=== PATIENT | female | born 1940 | race Caucasian/White ===

== ENCOUNTER 2016-09-23 12:26 | Day surgery (SDC) | payer BC ==
[2016-09-23] MEDS ORDERED: FENTANYL PF 100MCG/2ML VIAL IV ONE (14:00)
[2016-09-23] MEDS ORDERED: LIDOCAINE 2% MDV (20MG/ML) 20ML VIAL IV ONE (14:00)
[2016-09-23] MEDS ORDERED: PROPOFOL 10 MG/ML VIAL IV ONE (14:00)
--- NOTE | 2016-09-27 15:00 | Operative Note ---
DATE OF SURGERY: 09/23/2016 SURGEON: Hannah Wall MD OPERATION: ESOPHAGOGASTRODUODENOSCOPY. INDICATIONS: This is a 76-year-old female with a history of epigastric pain who presented for esophagogastroduodenoscopy. POSTOPERATIVE DIAGNOSES: 1. Diffuse gastritis. 2. Mild distal esophagitis. 3. Normal duodenum. ANESTHESIA: Sedation is per Anesthesia. Pulse oximetry was monitored throughout the procedure to maintain O2 saturation of 90% or greater. Supplemental oxygen was administered via nasal cannula. Cardiac and vital signs were monitored throughout the duration of the procedure, and they were stable. The procedure of esophagogastroduodenoscopy and risks and benefits of the procedure, including the risk of bleeding and perforation, among others, were explained to the patient who voiced understanding and desired to have the procedure done. Physical examination was performed, and the patient was found stable for sedation. PROCEDURE: The patient was placed in the left lateral position. Sedation was initiated. A plastic bite block was inserted into the oral cavity. The Olympus [id number] gastroscope was introduced into the oral cavity and advanced to the proximal esophagus without difficulty. The esophageal mucosa was carefully examined upon introduction of the gastroscope. The proximal and mid esophageal mucosa appeared normal. There was mild Z line irregularity but no ulcerations noted. The gastroscope was then advanced into the stomach, and surveillance of the stomach revealed diffuse erythema along the gastric body and antrum but no ulcers were noted. The gastroscope was then advanced to the descending duodenum without difficulty. The duodenal bulb and descending duodenum appeared normal. The gastroscope was then withdrawn into the stomach and retroflexion was performed. There were no other lesions noted. The gastroscope was then straightened and withdrawn while carefully examining the gastric and esophageal mucosa. No other lesions were noted. Multiple duodenal, gastric, and distal esophageal biopsies were obtained. She remained with stable vital signs and was transferred to the recovery room. RECOMMENDATIONS: 1. Start on proton pump inhibitors. 2. Follow up on the biopsies. 3. I would be happy to see her back as needed. Thank you for allowing me to participate in the care of your patient. Hannah Wall MD CC: Dr. Justin Mayorga [facility]
== END 2016-09-23 14:35 | disposition home or self-care (01) ==
LOC: HOP 12:26
PROVIDERS: ATTEND Internal Medicine Gastroenterology
DX: K29.50 Unspecified chronic gastritis without bleeding (principal); K21.0 Gastro-esophageal reflux disease with esophagitis; G62.9 Polyneuropathy, unspecified
CPT/HCPCS: 43239; 00740; J3010

== ENCOUNTER 2018-08-22 07:20 | Day surgery (SDC) | payer BC ==
--- NOTE | 2018-08-22 06:28 | History and Physical - Ferro ---
CHIEF COMPLAINT/HISTORY OF CHIEF COMPLAINT: This patient presents with a history of intractable lumbar radiculopathy. Due to the failure of therapy a spinal cord stimulator trial was conducted on 06/04/18 with 75-85% pain control. Due to the failure of all therapies and the success of the trial she presents today for implantation of a permanent system. PAST MEDICAL HISTORY: Degenerative arthritis, fibromyalgia, depression and difficulty sleeping. PAST SURGICAL HISTORY: section, hysterectomy and tubal ligation. EMPLOYMENT STATUS: Retired. MEDICATIONS ON ADMISSION: List to be provided. ALLERGIES: PENICILLIN. FAMILY/PSYCHOSOCIAL HISTORY: Social history - Caffeine. Family history - Adopted. PHYSICAL EXAMINATION: Height is 5'0", weight is 140. No vital signs. HEENT: Within normal limits. LUNGS: Clear. HEART: Rapid and regular. ABDOMEN: Nontender. MUSCULOSKELETAL: Examination of the musculoskeletal system shows diffuse tenderness in the lumbar spine region. Range of motion produces pain across the outer front surface of both legs. Ambulation - No assistive device utilized. NEUROLOGIC: Cranial nerves are intact. IMPRESSION: LUMBAR RADICULOPATHY, ICD-10 CODE M54.16 AND M54.17. PLAN: This patient is here for implantation of a permanent spinal cord stimulator after the failure of all therapy and the success of the trial. The procedure will be considered outpatient although an overnight stay will be evaluated. JOB NUMBER: [id number] AND [id number] [facility]
[~2018-08-22 07:20] MED LIST: ACETAMINOPHEN 1,000 MG/100 ML BTL IV ONE; CLINDAMYCIN 600MG/50ML PREMIX 600 MG/50 ML BAG IVPB ONE; FAMOTIDINE 20MG TABLET PO ONE; MECLIZINE 25 MG TABLET PO ONE; METOCLOPRAMIDE 10 MG TABLET PO ONE
[2018-08-22] MEDS ORDERED: LIDOCAINE 1% W/EPI 1:200,000 MPF 30ML SQ ONE (07:21)
[2018-08-22] MEDS ORDERED: PROPOFOL 10 MG/ML VIAL IV ONE (07:21)
[2018-08-22] MEDS ORDERED: BUPIVACAINE 0.5% W/EPI MPF 30 ML VIAL IVP ONE (07:21)
[2018-08-22] MEDS ORDERED: FENTANYL PF 100MCG/2ML VIAL IV ONE (07:21)
[2018-08-22] MEDS ORDERED: Clindamycin 600mg vial 150 MG/ML VIAL IVPB ONE (07:21)
[2018-08-22] MEDS ORDERED: LIDOCAINE 2% MDV (20MG/ML) 20ML VIAL IV ONE (07:21)
[2018-08-22] MEDS ORDERED: MIDAZOLAM HCL 2MG/2ML VIAL IV ONE (07:21)
--- NOTE | 2018-08-22 18:07 | Operative Note - Ferro ---
DATE OF SURGERY: 08/22/18 PREOPERATIVE DIAGNOSIS: LUMBAR RADICULOPATHY, ICD-10 CODE = M54.16 AND M54.17. OPERATION: 1. FLUOROSCOPICALLY-GUIDED LEFT EPIDURAL ACCESS AT T11-12 WITH CURVED ACCESS EPIMED NEEDLE [id number]. PLACEMENT OF SPINAL CORD STIMULATOR LEAD 1, A [employer] INFINION 16 WITH 6 ELECTRODES POSITIONED LEFT T6. 2. FLUOROSCOPICALLY-GUIDED EPIDURAL ACCESS LEFT T12-L1. CURVED ACCESS EPIMED NEEDLE [id number]. PLACEMENT OF SPINAL CORD STIMULATOR LEAD 2, A [employer] INFINION 16 WITH 6 ELECTRODES POSITIONED RIGHT T6. 3. COMPLEX PROGRAMMING LEAD 1 OVER 20 MINUTES FOLLOWED BY COMPLEX PROGRAMMING OF LEAD 2 OVER 20 MINUTES. 4. INCISION, SUBCUTANEOUS DISSECTION, AND ANCHORING OF LEAD 1 AND LEAD 2 TO SUPRASPINATUS FASCIA WITH A [employer] LOCKING ANCHOR AND NONABSORBABLE SUTURE. 5. INCISION, SUBCUTANEOUS DISSECTION, AND CREATION OF A SUBCUTANEOUS POUCH AT RIGHT POSTERIOR GLUTEAL MARGIN FOR PLACEMENT OF GENERATOR IDENTIFIED A [employer] PROGRAMMABLE RECHARGEABLE WAVEWRITER. 6. TUNNELING BETWEEN POUCHES, PLACEMENT OF EXTERNAL PORTION OF LEAD 1 AND LEAD 2 INTO GENERATOR POUCH, EACH LEAD INTERFACED TO GENERATOR. 7. PLACEMENT OF GENERATOR LEADS INTO POUCH. CLOSURE OF BOTH INCISIONS USING STRATAFIX SUTURE 2-0 FASCIA, 3-0 SKIN. DERMABOND CLOSURE. 8. COMPLEX RECOVERY ROOM PROGRAMMING INTERNAL GENERATOR HOME USE TWO STIMULATORS 20 MINUTES. SURGEON: PETE EDDY D.O. ANESTHESIA: LOCAL SEDATION. ANESTHESIA PROVIDER: CRNA. Freddie INDICATION: This patient presents with a history of intractable lumbar radiculopathy. Due to the failure of all therapies a spinal cord stimulator trial was conducted with 75-85% pain control. Due to the failure of all therapies and the success of the trial, the patient presents today for implantation of a permanent system. PROCEDURE: Intravenous line, vital sign monitoring, IV sedation, prepped and draped in sterile technique, patient position on the table prone. A sterile technique with imaging for guidance and local for infiltration, the following is performed: From the left, the epidural interspace at T11-12 and 12-1 were both identified and marked. The skin was infiltrated using a 25-gauge needle with local anesthetic. A 22-gauge spinal needle was inserted down from the skin to the lamina at each and local was infiltrated into the lamina. Using two separate curved Epimed needles with a loss of resistance techniques, the epidural space was accessed, first 11-12 and then 12-1 without incident atraumatically. No CSF. At 11-12, spinal cord stimulator lead 1, a [employer] Infinion 16 with 6 electrodes was advanced through the needle under imaging positioned left of midline at T6. With the access at 12-1, spinal cord stimulator lead 2, a [employer] Infinion 16 with 6 electrodes was advanced under imaging positioned right of the midline with the upper electrode at T6 parallel to lead 1. With the patient awake and appropriately responsive, complex programming of lead 1 over 20 minutes followed by lead 2 over 20 minutes was performed. With both leads then activated simultaneously with a complete pattern of stimulation across the back and into the legs. Patient indicating we had all of the appropriate areas. She was at that point given the option to implant the system, continue to program, or remove; she opted to implant. Questions were repeated with the same response. The skin above and below both needles was then infiltrated and with the patient fully sedated, an incision was made above, at, and below the needles. Subcutaneous dissection was conducted to the supraspinous fascia. The needles were removed and then each lead was anchored to the supraspinous fascia with a [employer] Box Elder and nonabsorbable suture. At the right posterior gluteal margin, a site picked by the patient for the generator, a [employer] Programmable Rechargeable WaveWriter, skin infiltrated, incision made, and subcutaneous dissection was conducted to form a pouch of suitable size and depth for the generator. A tunneling tool was then used to carry the leads into the generator pouch and each was interfaced to the generator. Antibiotic irrigation and Bovie for hemostasis to control bleeding. The generator was then placed into its own pouch and the leads were placed into their own pouch, and then both incisions were closed using STRATAFIX suture 2-0 fascia and a 3-0 subcuticular. A Dermabond closure system was then used to approximate the edges of both wounds. She was transported to the Recovery Room stable. There were no side-effects from the procedure or the sedation. She was fully awake and alert, had full functionality of the extremities. There was no unusual pain or side-effects. Her request was to be discharged home. She will be monitored then prepared for discharge. DISCHARGE INSTRUCTIONS: 1. Sites will remain clean and dry although the Dermabond will allow showering, she should not sit in water. No tubs. 2. Standard medications resumed, the antibiotic Levaquin, she will take 500 mg once a day for 14 days. If allergic, Cipro or Keflex will be substituted. 3. The office will contact the patient in 24-48 hours to set up a time in 7-10 days for us to evaluate the sites. Until that time, she is to keep her activities low and controlled. Should there be any problem, she should go to the Emergency Room and/or contact the clinic. All other instructions were provided, numbers to contact with problems given, she will be discharged. cc: Dr. Yaya Joyce JOB NUMBER: [id number] MTDD
--- NOTE | 2018-08-24 09:04 | RADIOLOGY REPORT ---
EXAM: THORACOLUMBAR SPINE HISTORY: SPINAL CORD STIMULATOR IMPLANT. TECHNIQUE: A single frontal view of the thoracolumbar spine was obtained. Comparison: Chest radiograph 09/16/14. FINDINGS: Interval placement of a stimulator device, stimulator leads superimpose the T6 through T9 vertebra, a generator is partially visualized overlying the right lower abdominal quadrant. For additional details please refer to the procedural report. Moderate to large colonic stool burden is noted. Scattered degenerative changes of the thoracic and lumbar spine. IMPRESSION: ABOVE. [facility] [id number] [facility]
== END 2018-08-22 10:55 | disposition home or self-care (01) ==
LOC: SUR 07:20
PROVIDERS: ATTEND Pain Medicine Interventional Pain Medicine
DX: M54.16 Radiculopathy, lumbar region (principal); M54.17 Radiculopathy, lumbosacral region; E78.00 Pure hypercholesterolemia, unspecified
CPT/HCPCS: 63650; 63685; 01936; 95972; 72020; J3010; C1820; C1883

== ENCOUNTER 2019-01-01 19:14 | Emergency (ER) | payer BC ==
--- NOTE | 2019-01-01 19:51 | Emergency Department Record ---
History of Present Illness - General Chief complaint: Pain Stated complaint: PAIN,DEPRESSION Time Seen by Provider: 01/01/19 19:45 Source: Patient Mode of Arrival: EMS Limitations: No limitations - History of Present Illness Initial comments: 78 yo female presents to ED for evaluation of diffuse pain due to fibromyalgia and arthritis symptoms after running out of her Tramadol and Gabapentin. Patient reports that she missed her appointment to renew her pain medications as she was not feeling well. Patient reports that she called back earlier today, was tole that she could not see another provider and that her medications would not be renewed as she has missed 3 appointments. Vandana also reports history of spinal nerve stimulator placement with Dr. Rincon previously as well. Patient denies new injury, denies fevers, chills, or recent illness. MD Complaint: Other Onset/Timin -: Days(s) History of Same: Yes -: Yes Arthralgia Quality: Aching Consistency: Constant Improves with: Nothing Worsens with: Nothing Associated Symptoms: Denies other symptoms - Related Data Home Medications Medication Instructions Recorded Confirmed Last Taken Gabapentin [Neurontin] 100 mg PO QAM 01/01/19 01/01/19 Unknown Gabapentin [Neurontin] 200 mg PO QHS 01/01/19 01/01/19 Unknown Previous Rx's Medication Instructions Recorded Gabapentin [Neurontin] 100 mg PO BID #9 capsule 01/01/19 Tramadol HCl 50 mg PO Q8H #9 tab 01/01/19 Allergies Allergy/AdvReac Type Severity Reaction Status Date / Time Penicillins Allergy RASH Unverified 09/25/18 12:53 Review of Systems Constitutional: Denies: Chills, Fever, Malaise, Night sweats Eyes: Denies: Eye discharge, Eye pain ENT: Denies: Congestion, Ear pain, Epistaxis Respiratory: Denies: Cough, Dyspnea Cardiovascular: Denies: Chest pain, Dyspnea on exertion Endocrine: Denies: Fatigue, Heat or cold intolerance Gastrointestinal: Denies: Abdominal pain, Nausea, Vomiting Genitourinary: Denies: Incontinence, Retention Musculoskeletal: Reports: Arthralgia, Myalgia. Denies: Back pain, Joint swelling Skin: Denies: Bruising, Change in color Neurological: Denies: Abnormal gait, Confusion, Headache, Seizure Psychiatric: Denies: Anxiety Hematological/Lymphatic: Denies: Anemia, Blood Clots Past Medical History - SOCIAL HISTORY Smoking Status: Never smoker - RESPIRATORY Hx Respiratory Disorders: No - CARDIOVASCULAR Hx Cardio Disorders: No Comment:: D/T back and hip pain - NEURO Hx Neuropathy: Yes - GI Hx Reflux: Yes - Hx Kidney Stones: Yes - ENDOCRINE Hx Endocrine Disorders: No - MUSCULOSKELETAL Hx Musculoskeletal Disorders: Yes Hx Arthritis: Yes Hx Fibromyalgia: Yes Comment:: bursitis - PSYCH Hx Depression: Yes - HEMATOLOGY/ONCOLOGY Hx Hematology/Oncology Disorders: No Family Medical History Family Hx Comment (NOT TO BE USED IN PLACE OF ITEMS BELOW): adopted Physical Exam - General General Appearance: Alert, Oriented x3, Cooperative, Moderate distress, Anxious Limitations: No limitations - Head Head exam: Atraumatic, Normocephalic, Normal inspection Head exam detail: negative: Abrasion, Contusion, [place]'s sign, General tenderness, Hematoma, Laceration - Eye Eye exam: Normal appearance. negative: Conjunctival injection, Periorbital swelling, Periorbital tenderness, Scleral icterus - ENT Ear exam: negative: Auricular hematoma, Auricular trauma Nasal Exam: negative: Active bleeding, Discharge, Dried blood, Foreign body Mouth exam: negative: Drooling, Laceration, Muffled voice, Tongue elevation - Neck Neck exam: Normal inspection. negative: Meningismus, Tenderness - Respiratory Respiratory exam: Normal lung sounds bilaterally. negative: Rales, Respiratory distress, Rhonchi, Stridor - Cardiovascular Cardiovascular Exam: Regular rate, Normal rhythm, Normal heart sounds - GI/Abdominal GI/Abdominal exam: Soft. negative: Rebound, Rigid, Tenderness - Rectal Rectal exam: Deferred - exam: Deferred - Extremities Extremities exam: Normal inspection. negative: Pedal edema, Tenderness - Back Back exam: Denies: CVA tenderness (R), CVA tenderness (L) - Neurological Neurological exam: Alert, Normal gait, Oriented X3 - Psychiatric Psychiatric exam: Anxious - Skin Skin exam: Normal color. negative: Abrasion Type of lesion: negative: abrasion Course - Reevaluation(s) Reevaluation #1: 01/01/19 20:41 Patient was reassessed and reports that she is feeling significantly better. Patient's symptoms appear c/c acute opiate withdrawal. Will supply patient with 3-day supply of her Tramadol with instructions to follow-up with Dr. Joyce in 1-3 days for further evaluation. Disposition Disposition: Discharge Clinical Impression: Opiate withdrawal Disposition: Home, Self-Care Condition: (2) Stable Instructions: Opioid Withdrawal (ED) Additional Instructions: Return to ED if your symptoms worsen or if you have any concerns. Tramadol and Gabapentin as directed. Follow-up with your family doctor in 1-3 days without fail. Prescriptions: Gabapentin [Neurontin] 100 mg PO BID #9 capsule Tramadol HCl 50 mg PO Q8H #9 tab Forms: Patient Portal Access Time of Disposition: 20:43 Quality - Quality Measures Quality Measures: N/A - Blood Pressure Screening Does Patient Have Any of the Following: Active Dx of HTN Blood Pressure Classification: Hypertensive Reading Systolic Measurement: 152 Diastolic Measurement: 109 Screening for High Blood Pressure: Patient Exclusion, Hx of HTN [[id number]]
[2019-01-01] MEDS: HYDROMORPHONE HCL 2 MG/ML VIAL IM ONE (19:54)
[2019-01-01] MEDS: ONDANSETRON HCL IV 4 MG/2 ML VIAL IM ONE (19:54)
== END 2019-01-01 20:52 | disposition home or self-care (01) ==
LOC: ER 19:14
DX: F11.23 Opioid dependence with withdrawal (principal); T40.2X5A Adverse effect of other opioids, initial encounter; M79.7 Fibromyalgia; I10 Essential (primary) hypertension
CPT/HCPCS: 96372; 96374; 96375; 99283; J2405